=== PATIENT | male | born 1930 | race Caucasian/White ===

== ENCOUNTER 2017-05-28 15:50 | Inpatient (IN) | payer MEDICARE ==
[2017-05-28 16:44] LABS: BASO # 0.1 10^3/uL (0.0-0.2); BASO % 0.8 % (0.0-1.0); EOS # 0.3 10^3/uL (0.0-0.50); EOS % 3.7 % (0.0-3.0); HEMATOCRIT 35.6 % (42.0-52.0); HEMOGLOBIN 12.1 g/dl (13.5-17.5); IMMATURE GRANULOCYTE % 0.2 % (0-3.0); LYMPH # 2.8 10^3/uL (1.5-4.5); LYMPH % 32.4 % (24.0-44.0); MEAN CORPUSCULAR HEMOGLOBIN 34.9 pg (27.0-33.0); MEAN CORPUSCULAR VOLUME 102.6 fl (80.0-96.0); MONO # 0.8 10^3/uL (0.0-0.8); MONO % 9.2 % (0.0-5.0); NEUTROPHILS # 4.6 10^3/uL (1.8-7.7); NEUTROPHILS % 53.7 % (36.0-66.0); PLATELET COUNT, AUTOMATED 189 10^3/uL (150-450); RED BLOOD COUNT 3.47 10^6/uL (4.30-6.10); RED CELL DISTRIBUTION WIDTH 13.2 % (11.5-14.5); WHITE BLOOD COUNT 8.6 10^3/uL (4.0-10.0)
[2017-05-28 16:55] LABS: INR 0.95; PROTHROMBIN TIME 12.8 SECONDS (12.4-14.5)
[2017-05-28 16:56] LABS: PARTIAL THROMBOPLASTIN TIME 32.1 SECONDS (26.8-37.9)
[2017-05-28 17:02] LABS: ALBUMIN 3.5 GM/DL (3.2-5.2); ALBUMIN/GLOBULIN RATIO 1.17 (1.00-1.93); ALKALINE PHOSPHATASE 75 U/L (45-117); ALT/SGPT 30 U/L (12-78); ANION GAP 4 MEQ/L (8-16); AST/SGOT 17 U/L (7-37); BILIRUBIN,DIRECT 0.1 MG/DL (0.0-0.2); BILIRUBIN,TOTAL 0.4 MG/DL (0.2-1.0); BLOOD UREA NITROGEN 13 MG/DL (7-18); CALCIUM LEVEL 8.5 MG/DL (8.8-10.2); CARBON DIOXIDE LEVEL 30 MEQ/L (21-32); CHLORIDE LEVEL 108 MEQ/L (98-107); CPK CREATINE PHOSPHOKINASE 171 U/L (39-308); CREATININE FOR GFR 1.13 MG/DL (0.70-1.30); GLOMERULAR FILTRATION RATE > 60.0 (>35); GLUCOSE, FASTING 125 MG/DL (70-100); POTASSIUM SERUM 4.2 MEQ/L (3.5-5.1); SODIUM LEVEL 142 MEQ/L (136-145); TOTAL PROTEIN 6.5 GM/DL (6.4-8.2); TROPONIN I < 0.02 NG/ML (< 0.10)
[2017-05-28 17:07] LABS: CK-MB VALUE MASS 2.6 NG/ML (<3.6); MB/CK RELATIVE INDEX 1.52 (< OR =4)
[2017-05-28] MEDS: LABETALOL HCL 100 MG/20 ML VIAL IV (17:55)
[2017-05-28] MEDS ORDERED: ACETAMINOPHEN TAB 650MG DOSE (2X325MG) PO (19:15)
[2017-05-28] MEDS: hydrALAZINE INJ 20 MG/ML VIAL IV (19:50)
[2017-05-28 23:43] LABS: CPK CREATINE PHOSPHOKINASE 146 U/L (39-308); TROPONIN I < 0.02 NG/ML (< 0.10)
[2017-05-28 23:44] LABS: CK-MB VALUE MASS 2.6 NG/ML (<3.6); MB/CK RELATIVE INDEX 1.78 (< OR =4)
[2017-05-29] MEDS: hydrALAZINE INJ 20 MG/ML VIAL IV ×2 (04:05→12:09)
[2017-05-29 05:40] LABS: BASO # 0.1 10^3/uL (0.0-0.2); BASO % 0.7 % (0.0-1.0); EOS # 0.5 10^3/uL (0.0-0.50); EOS % 4.8 % (0.0-3.0); HEMATOCRIT 34.6 % (42.0-52.0); HEMOGLOBIN 11.7 g/dl (13.5-17.5); IMMATURE GRANULOCYTE % 0.2 % (0-3.0); LYMPH # 3.7 10^3/uL (1.5-4.5); LYMPH % 37.5 % (24.0-44.0); MEAN CORPUSCULAR HEMOGLOBIN 33.8 pg (27.0-33.0); MEAN CORPUSCULAR HGB CONC 33.8 g/dl (32.0-36.5); MONO # 0.9 10^3/uL (0.0-0.8); MONO % 9.4 % (0.0-5.0); NEUTROPHILS # 4.7 10^3/uL (1.8-7.7); NEUTROPHILS % 47.4 % (36.0-66.0); PLATELET COUNT, AUTOMATED 197 10^3/uL (150-450); RED BLOOD COUNT 3.46 10^6/uL (4.30-6.10); RED CELL DISTRIBUTION WIDTH 12.9 % (11.5-14.5); WHITE BLOOD COUNT 9.9 10^3/uL (4.0-10.0)
[2017-05-29 06:04] LABS: ALBUMIN 3.3 GM/DL (3.2-5.2); ALKALINE PHOSPHATASE 64 U/L (45-117); ALT/SGPT 24 U/L (12-78); ANION GAP 4 MEQ/L (8-16); AST/SGOT 14 U/L (7-37); BILIRUBIN,TOTAL 0.3 MG/DL (0.2-1.0); CALCIUM LEVEL 8.5 MG/DL (8.8-10.2); CARBON DIOXIDE LEVEL 28 MEQ/L (21-32); CHLORIDE LEVEL 112 MEQ/L (98-107); CPK CREATINE PHOSPHOKINASE 126 U/L (39-308); CREATININE FOR GFR 1.09 MG/DL (0.70-1.30); GLOMERULAR FILTRATION RATE > 60.0 (>35); GLUCOSE, FASTING 106 MG/DL (70-100); MAGNESIUM LEVEL 2.2 MG/DL (1.8-2.4); POTASSIUM SERUM 3.6 MEQ/L (3.5-5.1); SODIUM LEVEL 144 MEQ/L (136-145); TOTAL PROTEIN 6.6 GM/DL (6.4-8.2); TROPONIN I < 0.02 NG/ML (< 0.10)
[2017-05-29 06:05] LABS: BLOOD UREA NITROGEN 12 MG/DL (7-18); MB/CK RELATIVE INDEX 1.58 (< OR =4)
[2017-05-29] MEDS: ATORVASTATIN 20 MG TAB PO (09:15)
[2017-05-29] MEDS: TAMSULOSIN 0.4 MG CAP PO (09:15)
[2017-05-29] MEDS: ASPIRIN 81 MG ENTERIC TAB PO (09:15)
[2017-05-29] MEDS: CLOPIDOGREL 75 MG TAB PO (09:15)
[2017-05-29] MEDS: DONEPEZIL 5 MG TAB PO (09:15)
[2017-05-29] MEDS: FINASTERIDE 5 MG TAB PO (10:44)
[2017-05-29] MEDS: **hydrALAZINE** 10 MG TAB PO ×3 (12:00→23:14)
[2017-05-29] MEDS: ISOSORBIDE MON. (IMDUR) 30 MG XR TAB PO (12:08)
[2017-05-29] MEDS ORDERED: ISOVUE-370 76% 100ML VIAL (Q9967) As Ordered (17:13)
[2017-05-29] MEDS ORDERED: SLF 3 ML SYR IV (19:00)
[2017-05-29] MEDS: SLF 3 ML SYR IV (22:00)
[2017-05-30] MEDS: **hydrALAZINE** 10 MG TAB PO ×3 (03:34→17:21)
[2017-05-30] MEDS: SLF 3 ML SYR IV ×3 (03:34→22:00)
[2017-05-30 05:55] LABS: BASO # 0.1 10^3/uL (0.0-0.2); BASO % 0.6 % (0.0-1.0); EOS # 0.5 10^3/uL (0.0-0.50); EOS % 4.5 % (0.0-3.0); HEMATOCRIT 33.4 % (42.0-52.0); HEMOGLOBIN 11.4 g/dl (13.5-17.5); IMMATURE GRANULOCYTE % 0.3 % (0-3.0); LYMPH % 27.4 % (24.0-44.0); MEAN CORPUSCULAR HEMOGLOBIN 34.9 pg (27.0-33.0); MEAN CORPUSCULAR HGB CONC 34.1 g/dl (32.0-36.5); MEAN CORPUSCULAR VOLUME 102.1 fl (80.0-96.0); MONO # 1.1 10^3/uL (0.0-0.8); MONO % 9.5 % (0.0-5.0); NEUTROPHILS # 6.4 10^3/uL (1.8-7.7); NEUTROPHILS % 57.7 % (36.0-66.0); PLATELET COUNT, AUTOMATED 180 10^3/uL (150-450); RED BLOOD COUNT 3.27 10^6/uL (4.30-6.10); RED CELL DISTRIBUTION WIDTH 13.3 % (11.5-14.5)
[2017-05-30 06:20] LABS: ALBUMIN 3.1 GM/DL (3.2-5.2); ALBUMIN/GLOBULIN RATIO 0.97 (1.00-1.93); ALKALINE PHOSPHATASE 68 U/L (45-117); ALT/SGPT 22 U/L (12-78); ANION GAP 7 MEQ/L (8-16); AST/SGOT 10 U/L (7-37); BILIRUBIN,TOTAL 0.5 MG/DL (0.2-1.0); BLOOD UREA NITROGEN 15 MG/DL (7-18); CALCIUM LEVEL 8.7 MG/DL (8.8-10.2); CARBON DIOXIDE LEVEL 28 MEQ/L (21-32); CHLORIDE LEVEL 109 MEQ/L (98-107); CREATININE FOR GFR 1.25 MG/DL (0.70-1.30); GLOMERULAR FILTRATION RATE 58.3 (>35); GLUCOSE, FASTING 110 MG/DL (70-100); MAGNESIUM LEVEL 2.1 MG/DL (1.8-2.4); POTASSIUM SERUM 3.9 MEQ/L (3.5-5.1); SODIUM LEVEL 144 MEQ/L (136-145); TOTAL PROTEIN 6.3 GM/DL (6.4-8.2)
[2017-05-30] MEDS: CLOPIDOGREL 75 MG TAB PO (08:29)
[2017-05-30] MEDS: ASPIRIN 81 MG ENTERIC TAB PO (08:29)
[2017-05-30] MEDS: FINASTERIDE 5 MG TAB PO (08:29)
[2017-05-30] MEDS: ATORVASTATIN 20 MG TAB PO (08:30)
[2017-05-30] MEDS: amLODIPine 5 MG TAB PO (08:30)
[2017-05-30] MEDS: TAMSULOSIN 0.4 MG CAP PO (08:31)
[2017-05-30] MEDS: ISOSORBIDE MON. (IMDUR) 30 MG XR TAB PO ×2 (08:31→12:07)
[2017-05-30] MEDS: DONEPEZIL 5 MG TAB PO (08:31)
[2017-05-31] MEDS: **hydrALAZINE** 10 MG TAB PO ×2 (00:31→05:45)
[2017-05-31] MEDS: SLF 3 ML SYR IV ×3 (06:00→22:00)
[2017-05-31 06:03] LABS: BASO # 0.1 10^3/uL (0.0-0.2); BASO % 0.7 % (0.0-1.0); EOS # 0.5 10^3/uL (0.0-0.50); EOS % 5.2 % (0.0-3.0); HEMATOCRIT 33.9 % (42.0-52.0); HEMOGLOBIN 11.5 g/dl (13.5-17.5); IMMATURE GRANULOCYTE % 0.3 % (0-3.0); LYMPH # 2.9 10^3/uL (1.5-4.5); LYMPH % 28.7 % (24.0-44.0); MEAN CORPUSCULAR HEMOGLOBIN 33.9 pg (27.0-33.0); MEAN CORPUSCULAR HGB CONC 33.9 g/dl (32.0-36.5); MONO # 1.2 10^3/uL (0.0-0.8); MONO % 11.5 % (0.0-5.0); NEUTROPHILS # 5.4 10^3/uL (1.8-7.7); NEUTROPHILS % 53.6 % (36.0-66.0); PLATELET COUNT, AUTOMATED 188 10^3/uL (150-450); RED BLOOD COUNT 3.39 10^6/uL (4.30-6.10); RED CELL DISTRIBUTION WIDTH 12.9 % (11.5-14.5); WHITE BLOOD COUNT 10.1 10^3/uL (4.0-10.0)
[2017-05-31 06:32] LABS: ALBUMIN 3.1 GM/DL (3.2-5.2); ALBUMIN/GLOBULIN RATIO 0.91 (1.00-1.93); ALKALINE PHOSPHATASE 72 U/L (45-117); ALT/SGPT 21 U/L (12-78); ANION GAP 6 MEQ/L (8-16); AST/SGOT 12 U/L (7-37); BILIRUBIN,TOTAL 0.6 MG/DL (0.2-1.0); BLOOD UREA NITROGEN 13 MG/DL (7-18); CALCIUM LEVEL 8.4 MG/DL (8.8-10.2); CARBON DIOXIDE LEVEL 27 MEQ/L (21-32); CHLORIDE LEVEL 111 MEQ/L (98-107); CREATININE FOR GFR 1.01 MG/DL (0.70-1.30); GLOMERULAR FILTRATION RATE > 60.0 (>35); GLUCOSE, FASTING 113 MG/DL (70-100); MAGNESIUM LEVEL 2.1 MG/DL (1.8-2.4); POTASSIUM SERUM 3.8 MEQ/L (3.5-5.1); SODIUM LEVEL 144 MEQ/L (136-145); TOTAL PROTEIN 6.5 GM/DL (6.4-8.2)
[2017-05-31] MEDS: ISOSORBIDE MON. (IMDUR) 60 MG XR TAB PO (08:42)
[2017-05-31] MEDS: TAMSULOSIN 0.4 MG CAP PO (08:42)
[2017-05-31] MEDS: FINASTERIDE 5 MG TAB PO (08:42)
[2017-05-31] MEDS: ATORVASTATIN 20 MG TAB PO (08:42)
[2017-05-31] MEDS: DONEPEZIL 5 MG TAB PO (08:42)
[2017-05-31] MEDS: ASPIRIN 81 MG ENTERIC TAB PO (08:43)
[2017-05-31] MEDS: CLOPIDOGREL 75 MG TAB PO (08:43)
[2017-05-31] MEDS ORDERED: ISOSORBIDE MON. (IMDUR) 60 MG XR TAB PO (11:30)
[2017-05-31] MEDS: RAMIPRIL 1.25 MG CAP PO (11:45)
[2017-05-31] MEDS ORDERED: PHENYLEPHRINE INJ 10MG/ML VIAL (J2370) As Ordered (15:37)
[2017-05-31] MEDS ORDERED: LIDOCAINE 2% INJ 100 MG/5 ML SDV (FOR ANES.) As Ordered (15:37)
[2017-05-31] MEDS ORDERED: PHENYLephrine HCL 500 MCG/5 ML (100MCG/ML) SYRINGE (J2370) As Ordered (15:37)
[2017-05-31] MEDS ORDERED: MIDAZOLAM INJ 2 MG/2 ML VIAL (J2250) As Ordered (15:37)
[2017-05-31] MEDS ORDERED: KETOROLAC 60 MG/2 ML VIAL (J1885) As Ordered (15:37)
[2017-05-31] MEDS ORDERED: dexameTHASONE 4 MG/ML 1ML VIAL (J1100) As Ordered (15:37)
[2017-05-31] MEDS ORDERED: HEPARIN SOD (PORCINE) 5000 UNITS/ML VIAL As Ordered (15:37)
[2017-05-31] MEDS ORDERED: PROPOFOL 200 MG/20 ML VIAL As Ordered ×2 (15:37→17:12)
[2017-05-31] MEDS ORDERED: fentaNYL 100 MCG/2 ML INJECTION (J3010) As Ordered (15:37)
[2017-05-31] MEDS ORDERED: ONDANSETRON 4MG/2ML VIAL (J2405) As Ordered (15:37)
[2017-05-31] MEDS ORDERED: ROCURONIUM BROMIDE 50 MG/5 ML VIAL As Ordered (15:37)
[2017-05-31] MEDS ORDERED: GLYCOPYRROLATE INJ 0.2 MG/ML 2 ML VIAL As Ordered (17:11)
[2017-05-31] MEDS ORDERED: NEOSTIGMINE 10 MG/10 ML VIAL (J2710) As Ordered (17:12)
[2017-06-01 05:39] LABS: BASO # 0.1 10^3/uL (0.0-0.2); BASO % 0.8 % (0.0-1.0); EOS # 0.4 10^3/uL (0.0-0.50); EOS % 4.6 % (0.0-3.0); HEMATOCRIT 32.3 % (42.0-52.0); HEMOGLOBIN 10.9 g/dl (13.5-17.5); IMMATURE GRANULOCYTE % 0.3 % (0-3.0); LYMPH # 3.1 10^3/uL (1.5-4.5); LYMPH % 31.9 % (24.0-44.0); MEAN CORPUSCULAR HEMOGLOBIN 34.1 pg (27.0-33.0); MEAN CORPUSCULAR HGB CONC 33.7 g/dl (32.0-36.5); MEAN CORPUSCULAR VOLUME 100.9 fl (80.0-96.0); MONO # 1.1 10^3/uL (0.0-0.8); MONO % 11.4 % (0.0-5.0); NEUTROPHILS # 4.9 10^3/uL (1.8-7.7); PLATELET COUNT, AUTOMATED 186 10^3/uL (150-450); RED CELL DISTRIBUTION WIDTH 13.1 % (11.5-14.5); WHITE BLOOD COUNT 9.6 10^3/uL (4.0-10.0)
[2017-06-01] MEDS: SLF 3 ML SYR IV ×3 (05:45→21:51)
[2017-06-01 05:57] LABS: ALBUMIN 2.9 GM/DL (3.2-5.2); ALBUMIN/GLOBULIN RATIO 0.91 (1.00-1.93); ALKALINE PHOSPHATASE 70 U/L (45-117); ALT/SGPT 20 U/L (12-78); ANION GAP 6 MEQ/L (8-16); AST/SGOT 9 U/L (7-37); BILIRUBIN,TOTAL 0.6 MG/DL (0.2-1.0); BLOOD UREA NITROGEN 18 MG/DL (7-18); CALCIUM LEVEL 8.4 MG/DL (8.8-10.2); CARBON DIOXIDE LEVEL 27 MEQ/L (21-32); CHLORIDE LEVEL 110 MEQ/L (98-107); CREATININE FOR GFR 1.04 MG/DL (0.70-1.30); GLOMERULAR FILTRATION RATE > 60.0 (>35); GLUCOSE, FASTING 97 MG/DL (70-100); MAGNESIUM LEVEL 2.2 MG/DL (1.8-2.4); POTASSIUM SERUM 4.1 MEQ/L (3.5-5.1); SODIUM LEVEL 143 MEQ/L (136-145); TOTAL PROTEIN 6.1 GM/DL (6.4-8.2)
[2017-06-01] MEDS ORDERED: ISOSORBIDE MON. (IMDUR) 60 MG XR TAB PO (09:00)
[2017-06-01] MEDS: ATORVASTATIN 20 MG TAB PO (09:48)
[2017-06-01] MEDS: RAMIPRIL 1.25 MG CAP PO (09:48)
[2017-06-01] MEDS: FINASTERIDE 5 MG TAB PO (09:48)
[2017-06-01] MEDS: ISOSORBIDE MON. (IMDUR) 60 MG XR TAB PO (09:49)
[2017-06-01] MEDS: TAMSULOSIN 0.4 MG CAP PO (09:50)
[2017-06-01] MEDS: DONEPEZIL 5 MG TAB PO (09:50)
[2017-06-01] MEDS: CLOPIDOGREL 75 MG TAB PO (09:50)
[2017-06-01] MEDS: ASPIRIN 81 MG ENTERIC TAB PO (09:50)
[2017-06-02] MEDS: SLF 3 ML SYR IV ×3 (06:00→21:50)
[2017-06-02 06:36] LABS: BASO # 0.1 10^3/uL (0.0-0.2); BASO % 0.6 % (0.0-1.0); EOS # 0.5 10^3/uL (0.0-0.50); EOS % 5.2 % (0.0-3.0); HEMATOCRIT 31.9 % (42.0-52.0); HEMOGLOBIN 10.7 g/dl (13.5-17.5); IMMATURE GRANULOCYTE % 0.3 % (0-3.0); LYMPH # 2.8 10^3/uL (1.5-4.5); MEAN CORPUSCULAR HEMOGLOBIN 33.9 pg (27.0-33.0); MEAN CORPUSCULAR HGB CONC 33.5 g/dl (32.0-36.5); MEAN CORPUSCULAR VOLUME 100.9 fl (80.0-96.0); MONO # 1.1 10^3/uL (0.0-0.8); MONO % 11.3 % (0.0-5.0); NEUTROPHILS # 5.5 10^3/uL (1.8-7.7); NEUTROPHILS % 54.6 % (36.0-66.0); PLATELET COUNT, AUTOMATED 197 10^3/uL (150-450); RED BLOOD COUNT 3.16 10^6/uL (4.30-6.10); WHITE BLOOD COUNT 10.1 10^3/uL (4.0-10.0)
[2017-06-02 06:38] LABS: POSITIVE DIFF MP
[2017-06-02 07:08] LABS: ALBUMIN 2.9 GM/DL (3.2-5.2); ALBUMIN/GLOBULIN RATIO 0.85 (1.00-1.93); ALKALINE PHOSPHATASE 68 U/L (45-117); ALT/SGPT 18 U/L (12-78); ANION GAP 6 MEQ/L (8-16); AST/SGOT 9 U/L (7-37); BILIRUBIN,TOTAL 0.4 MG/DL (0.2-1.0); BLOOD UREA NITROGEN 19 MG/DL (7-18); CALCIUM LEVEL 8.1 MG/DL (8.8-10.2); CARBON DIOXIDE LEVEL 26 MEQ/L (21-32); CHLORIDE LEVEL 109 MEQ/L (98-107); CREATININE FOR GFR 1.06 MG/DL (0.70-1.30); GLOMERULAR FILTRATION RATE > 60.0 (>35); GLUCOSE, FASTING 108 MG/DL (70-100); MAGNESIUM LEVEL 2.2 MG/DL (1.8-2.4); POTASSIUM SERUM 3.9 MEQ/L (3.5-5.1); SODIUM LEVEL 141 MEQ/L (136-145); TOTAL PROTEIN 6.3 GM/DL (6.4-8.2)
[2017-06-02] MEDS: DONEPEZIL 5 MG TAB PO (09:00)
[2017-06-02] MEDS: CLOPIDOGREL 75 MG TAB PO ×2 (09:00→22:26)
[2017-06-02] MEDS: ATORVASTATIN 20 MG TAB PO (09:00)
[2017-06-02] MEDS: TAMSULOSIN 0.4 MG CAP PO (09:00)
[2017-06-02] MEDS: ASPIRIN 81 MG ENTERIC TAB PO ×2 (09:00→22:26)
[2017-06-02] MEDS: FINASTERIDE 5 MG TAB PO (09:00)
[2017-06-02] MEDS: ISOSORBIDE MON. (IMDUR) 60 MG XR TAB PO (09:00)
[2017-06-02] MEDS: RAMIPRIL 1.25 MG CAP PO (09:00)
[2017-06-02] MEDS ORDERED: PROPOFOL 200 MG/20 ML VIAL As Ordered (11:19)
[2017-06-02] MEDS ORDERED: PHENYLEPHRINE INJ 10MG/ML VIAL (J2370) As Ordered (11:19)
[2017-06-02] MEDS ORDERED: ESMOLOL INJ 100MG/10ML VIAL As Ordered (11:19)
[2017-06-02] MEDS ORDERED: LIDOCAINE 2% INJ 100 MG/5 ML SDV (FOR ANES.) As Ordered (11:19)
[2017-06-02] MEDS ORDERED: fentaNYL 100 MCG/2 ML INJECTION (J3010) As Ordered ×2 (11:19→12:33)
[2017-06-02] MEDS ORDERED: ETOMIDATE INJ 20MG/10ML VIAL As Ordered (11:19)
[2017-06-02] MEDS ORDERED: MIDAZOLAM INJ 2 MG/2 ML VIAL (J2250) As Ordered (11:19)
[2017-06-02] MEDS ORDERED: ROCURONIUM BROMIDE 50 MG/5 ML VIAL As Ordered (11:19)
[2017-06-02] MEDS: ceFAZolin 2 GM/D5W 50 ML IV BAG (J0690 PER 500MG) As Ordered (11:51)
[2017-06-02] MEDS: BUPIVACAINE HCL 0.5% 10 ML VIAL As Ordered (12:01)
[2017-06-02] MEDS: LIDOCAINE 1% MDV 20ML VIAL As Ordered (12:01)
[2017-06-02] MEDS: THROMBIN SOLN 20,000 UNITS KIT As Ordered (12:04)
[2017-06-02] MEDS: HEPARIN SOD (PORCINE) 5000 UNITS/ML VIAL As Ordered (12:05)
[2017-06-02] MEDS ORDERED: HEPARIN SOD (PORCINE) 5000 UNITS/ML VIAL As Ordered ×2 (12:25)
[2017-06-02] MEDS ORDERED: LABETALOL HCL 100 MG/20 ML VIAL As Ordered (13:20)
[2017-06-02] MEDS ORDERED: hydrALAZINE INJ 20 MG/ML VIAL As Ordered (13:26)
[2017-06-02] MEDS ORDERED: ePHEDrine SULFATE 25 MG/5 ML(5MG/ML) SYRINGE As Ordered (13:36)
[2017-06-02] MEDS: cloNIDine 0.1 MG TAB PO ×2 (18:18→20:14)
[2017-06-02] MEDS: hydrALAZINE INJ 20 MG/ML VIAL IV (21:50)
[2017-06-03] MEDS: hydrALAZINE INJ 20 MG/ML VIAL IV ×3 (04:18→16:25)
[2017-06-03 04:33] LABS: BASO % 0.3 % (0.0-1.0); EOS % 0.2 % (0.0-3.0); HEMATOCRIT 30.9 % (42.0-52.0); HEMOGLOBIN 10.3 g/dl (13.5-17.5); IMMATURE GRANULOCYTE % 0.4 % (0-3.0); LYMPH # 2.4 10^3/uL (1.5-4.5); LYMPH % 18.6 % (24.0-44.0); MEAN CORPUSCULAR HEMOGLOBIN 34.4 pg (27.0-33.0); MEAN CORPUSCULAR HGB CONC 33.3 g/dl (32.0-36.5); MEAN CORPUSCULAR VOLUME 103.3 fl (80.0-96.0); MONO # 1.5 10^3/uL (0.0-0.8); MONO % 11.7 % (0.0-5.0); NEUTROPHILS # 8.8 10^3/uL (1.8-7.7); NEUTROPHILS % 68.8 % (36.0-66.0); PLATELET COUNT, AUTOMATED 188 10^3/uL (150-450); RED BLOOD COUNT 2.99 10^6/uL (4.30-6.10); RED CELL DISTRIBUTION WIDTH 12.9 % (11.5-14.5); WHITE BLOOD COUNT 12.9 10^3/uL (4.0-10.0)
[2017-06-03 05:05] LABS: ALBUMIN 2.8 GM/DL (3.2-5.2); ALBUMIN/GLOBULIN RATIO 0.85 (1.00-1.93); ALKALINE PHOSPHATASE 75 U/L (45-117); ALT/SGPT 17 U/L (12-78); ANION GAP 5 MEQ/L (8-16); AST/SGOT 11 U/L (7-37); BILIRUBIN,TOTAL 0.4 MG/DL (0.2-1.0); BLOOD UREA NITROGEN 20 MG/DL (7-18); CALCIUM LEVEL 8.2 MG/DL (8.8-10.2); CARBON DIOXIDE LEVEL 26 MEQ/L (21-32); CHLORIDE LEVEL 108 MEQ/L (98-107); CREATININE FOR GFR 1.22 MG/DL (0.70-1.30); GLUCOSE, FASTING 163 MG/DL (70-100); MAGNESIUM LEVEL 2.2 MG/DL (1.8-2.4); POTASSIUM SERUM 4.1 MEQ/L (3.5-5.1); SODIUM LEVEL 139 MEQ/L (136-145); TOTAL PROTEIN 6.1 GM/DL (6.4-8.2)
[2017-06-03] MEDS: SLF 3 ML SYR IV ×3 (06:00→21:59)
[2017-06-03] MEDS: RAMIPRIL 1.25 MG CAP PO (08:13)
[2017-06-03] MEDS: ASPIRIN 81 MG ENTERIC TAB PO (08:14)
[2017-06-03] MEDS: ATORVASTATIN 20 MG TAB PO (08:14)
[2017-06-03] MEDS: FINASTERIDE 5 MG TAB PO (08:14)
[2017-06-03] MEDS: DONEPEZIL 5 MG TAB PO (08:14)
[2017-06-03] MEDS: CLOPIDOGREL 75 MG TAB PO (08:14)
[2017-06-03] MEDS: ISOSORBIDE MON. (IMDUR) 60 MG XR TAB PO (08:15)
[2017-06-03] MEDS: TAMSULOSIN 0.4 MG CAP PO (08:15)
[2017-06-03 18:11] LABS: HEMATOCRIT 31.6 % (42.0-52.0); HEMOGLOBIN 10.5 g/dl (13.5-17.5)
[2017-06-03] MEDS: **hydrALAZINE** 10 MG TAB PO (21:58)
[2017-06-04] MEDS: **hydrALAZINE** 10 MG TAB PO ×4 (04:00→23:46)
[2017-06-04 04:32] LABS: BASO % 0.3 % (0.0-1.0); EOS # 0.2 10^3/uL (0.0-0.50); EOS % 1.9 % (0.0-3.0); HEMATOCRIT 29.2 % (42.0-52.0); HEMOGLOBIN 9.9 g/dl (13.5-17.5); IMMATURE GRANULOCYTE % 0.3 % (0-3.0); LYMPH # 2.8 10^3/uL (1.5-4.5); LYMPH % 22.7 % (24.0-44.0); MEAN CORPUSCULAR HEMOGLOBIN 34.6 pg (27.0-33.0); MEAN CORPUSCULAR HGB CONC 33.9 g/dl (32.0-36.5); MEAN CORPUSCULAR VOLUME 102.1 fl (80.0-96.0); MONO # 1.6 10^3/uL (0.0-0.8); MONO % 12.7 % (0.0-5.0); NEUTROPHILS # 7.7 10^3/uL (1.8-7.7); NEUTROPHILS % 62.1 % (36.0-66.0); PLATELET COUNT, AUTOMATED 186 10^3/uL (150-450); RED BLOOD COUNT 2.86 10^6/uL (4.30-6.10); RED CELL DISTRIBUTION WIDTH 12.9 % (11.5-14.5); WHITE BLOOD COUNT 12.3 10^3/uL (4.0-10.0)
[2017-06-04 04:52] LABS: ALBUMIN 2.7 GM/DL (3.2-5.2); ALBUMIN/GLOBULIN RATIO 0.75 (1.00-1.93); ALKALINE PHOSPHATASE 71 U/L (45-117); ALT/SGPT 18 U/L (12-78); ANION GAP 5 MEQ/L (8-16); AST/SGOT 13 U/L (7-37); BILIRUBIN,TOTAL 0.7 MG/DL (0.2-1.0); BLOOD UREA NITROGEN 22 MG/DL (7-18); CARBON DIOXIDE LEVEL 28 MEQ/L (21-32); CHLORIDE LEVEL 106 MEQ/L (98-107); CREATININE FOR GFR 1.11 MG/DL (0.70-1.30); GLOMERULAR FILTRATION RATE > 60.0 (>35); GLUCOSE, FASTING 120 MG/DL (70-100); MAGNESIUM LEVEL 2.1 MG/DL (1.8-2.4); SODIUM LEVEL 139 MEQ/L (136-145); TOTAL PROTEIN 6.3 GM/DL (6.4-8.2)
[2017-06-04] MEDS: SLF 3 ML SYR IV ×3 (07:24→22:00)
[2017-06-04] MEDS: ATORVASTATIN 20 MG TAB PO (09:53)
[2017-06-04] MEDS: DONEPEZIL 5 MG TAB PO (09:53)
[2017-06-04] MEDS: CLOPIDOGREL 75 MG TAB PO (09:53)
[2017-06-04] MEDS: RAMIPRIL 1.25 MG CAP PO (09:53)
[2017-06-04] MEDS: FINASTERIDE 5 MG TAB PO (09:53)
[2017-06-04] MEDS: ISOSORBIDE MON. (IMDUR) 60 MG XR TAB PO (09:53)
[2017-06-04] MEDS: ASPIRIN 81 MG ENTERIC TAB PO (09:54)
[2017-06-04] MEDS: TAMSULOSIN 0.4 MG CAP PO (09:54)
[2017-06-05 04:36] LABS: BASO % 0.3 % (0.0-1.0); EOS # 0.3 10^3/uL (0.0-0.50); HEMATOCRIT 28.5 % (42.0-52.0); HEMOGLOBIN 9.7 g/dl (13.5-17.5); IMMATURE GRANULOCYTE % 0.4 % (0-3.0); LYMPH # 3.8 10^3/uL (1.5-4.5); LYMPH % 26.9 % (24.0-44.0); MONO # 1.7 10^3/uL (0.0-0.8); MONO % 12.1 % (0.0-5.0); NEUTROPHILS # 8.2 10^3/uL (1.8-7.7); NEUTROPHILS % 58.3 % (36.0-66.0); PLATELET COUNT, AUTOMATED 205 10^3/uL (150-450); RED BLOOD COUNT 2.85 10^6/uL (4.30-6.10); RED CELL DISTRIBUTION WIDTH 12.5 % (11.5-14.5); WHITE BLOOD COUNT 14.1 10^3/uL (4.0-10.0)
[2017-06-05 04:54] LABS: ALBUMIN 2.8 GM/DL (3.2-5.2); ALBUMIN/GLOBULIN RATIO 0.76 (1.00-1.93); ALKALINE PHOSPHATASE 72 U/L (45-117); ALT/SGPT 28 U/L (12-78); ANION GAP 5 MEQ/L (8-16); AST/SGOT 21 U/L (7-37); BILIRUBIN,TOTAL 0.4 MG/DL (0.2-1.0); BLOOD UREA NITROGEN 22 MG/DL (7-18); CALCIUM LEVEL 8.1 MG/DL (8.8-10.2); CARBON DIOXIDE LEVEL 28 MEQ/L (21-32); CHLORIDE LEVEL 105 MEQ/L (98-107); CREATININE FOR GFR 1.06 MG/DL (0.70-1.30); GLOMERULAR FILTRATION RATE > 60.0 (>35); GLUCOSE, FASTING 125 MG/DL (70-100); MAGNESIUM LEVEL 2.4 MG/DL (1.8-2.4); SODIUM LEVEL 138 MEQ/L (136-145); TOTAL PROTEIN 6.5 GM/DL (6.4-8.2)
[2017-06-05] MEDS: **hydrALAZINE** 10 MG TAB PO ×4 (06:08→23:57)
[2017-06-05] MEDS: SLF 3 ML SYR IV ×3 (06:08→20:11)
[2017-06-05] MEDS: DONEPEZIL 5 MG TAB PO (08:23)
[2017-06-05] MEDS: TAMSULOSIN 0.4 MG CAP PO (08:24)
[2017-06-05] MEDS: FINASTERIDE 5 MG TAB PO (08:25)
[2017-06-05] MEDS: RAMIPRIL 1.25 MG CAP PO (08:26)
[2017-06-05] MEDS: CLOPIDOGREL 75 MG TAB PO (08:26)
[2017-06-05] MEDS: ISOSORBIDE MON. (IMDUR) 60 MG XR TAB PO (08:27)
[2017-06-05] MEDS: ASPIRIN 81 MG ENTERIC TAB PO (08:27)
[2017-06-05] MEDS: ATORVASTATIN 20 MG TAB PO (08:34)
[2017-06-06] MEDS: **hydrALAZINE** 10 MG TAB PO ×2 (05:23→12:16)
[2017-06-06] MEDS: SLF 3 ML SYR IV (05:26)
[2017-06-06 06:12] LABS: BASO % 0.3 % (0.0-1.0); EOS # 0.2 10^3/uL (0.0-0.50); EOS % 1.4 % (0.0-3.0); HEMATOCRIT 26.4 % (42.0-52.0); IMMATURE GRANULOCYTE % 0.4 % (0-3.0); LYMPH # 2.6 10^3/uL (1.5-4.5); LYMPH % 20.7 % (24.0-44.0); MEAN CORPUSCULAR HEMOGLOBIN 34.1 pg (27.0-33.0); MEAN CORPUSCULAR HGB CONC 34.1 g/dl (32.0-36.5); MONO # 1.7 10^3/uL (0.0-0.8); MONO % 13.7 % (0.0-5.0); NEUTROPHILS # 7.9 10^3/uL (1.8-7.7); NEUTROPHILS % 63.5 % (36.0-66.0); PLATELET COUNT, AUTOMATED 230 10^3/uL (150-450); RED BLOOD COUNT 2.64 10^6/uL (4.30-6.10); RED CELL DISTRIBUTION WIDTH 12.4 % (11.5-14.5); WHITE BLOOD COUNT 12.5 10^3/uL (4.0-10.0)
[2017-06-06 06:30] LABS: ALBUMIN 2.6 GM/DL (3.2-5.2); ALBUMIN/GLOBULIN RATIO 0.74 (1.00-1.93); ALKALINE PHOSPHATASE 76 U/L (45-117); ALT/SGPT 41 U/L (12-78); ANION GAP 3 MEQ/L (8-16); AST/SGOT 30 U/L (7-37); BILIRUBIN,TOTAL 0.6 MG/DL (0.2-1.0); BLOOD UREA NITROGEN 21 MG/DL (7-18); CALCIUM LEVEL 8.1 MG/DL (8.8-10.2); CARBON DIOXIDE LEVEL 30 MEQ/L (21-32); CHLORIDE LEVEL 103 MEQ/L (98-107); CREATININE FOR GFR 1.04 MG/DL (0.70-1.30); GLOMERULAR FILTRATION RATE > 60.0 (>35); GLUCOSE, FASTING 124 MG/DL (70-100); MAGNESIUM LEVEL 2.1 MG/DL (1.8-2.4); POTASSIUM SERUM 4.1 MEQ/L (3.5-5.1); SODIUM LEVEL 136 MEQ/L (136-145); TOTAL PROTEIN 6.1 GM/DL (6.4-8.2)
[2017-06-06] MEDS: ATORVASTATIN 20 MG TAB PO (08:26)
[2017-06-06] MEDS: FINASTERIDE 5 MG TAB PO (08:26)
[2017-06-06] MEDS: CLOPIDOGREL 75 MG TAB PO (08:26)
[2017-06-06] MEDS: DONEPEZIL 5 MG TAB PO (08:26)
[2017-06-06] MEDS: TAMSULOSIN 0.4 MG CAP PO (08:27)
[2017-06-06] MEDS: ASPIRIN 81 MG ENTERIC TAB PO (08:27)
[2017-06-06] MEDS: RAMIPRIL 1.25 MG CAP PO (08:28)
[2017-06-06] MEDS: ISOSORBIDE MON. (IMDUR) 60 MG XR TAB PO (08:28)
== END 2017-06-06 14:48 | disposition home health service (06) | DRG 39 ==
LOC: M ICU 06-02 12:30 → M PCU 05-29 15:00 → M MSPAV 06-05 14:29 → M ED 15:50 → M ED INP 19:12
PROC: 03CL0ZZ Extirpation of Matter from Left Internal Carotid Artery, Open Approach (ICD-10-PCS; principal; 2017-06-02 10:30)
PROC: 03UL0KZ Supplement Left Internal Carotid Artery with Nonautologous Tissue Substitute, Open Approach (ICD-10-PCS; 2017-06-02 10:30)
DX: I63.232 Cerebral infarction due to unspecified occlusion or stenosis of left carotid arteries (principal); I10 Essential (primary) hypertension; E78.5 Hyperlipidemia, unspecified; F03.90 Unspecified dementia, unspecified severity, without behavioral disturbance, psychotic disturbance, mood disturbance, and anxiety; D53.9 Nutritional anemia, unspecified; N40.0 Benign prostatic hyperplasia without lower urinary tract symptoms; Z79.82 Long term (current) use of aspirin; Z79.899 Other long term (current) drug therapy; Z96.653 Presence of artificial knee joint, bilateral; Z98.41 Cataract extraction status, right eye; Z98.42 Cataract extraction status, left eye

== ENCOUNTER → 2017-06-28 | Outpatient (CLI) | payer MEDICARE | LOC: M RAD 14:37 | DX: I65.23 Occlusion and stenosis of bilateral carotid arteries (principal) | CPT/HCPCS: 93880 ==